=== PATIENT | female | born 1960 | race African-American/Black ===

== ENCOUNTER 2024-01-13 01:00 | Emergency (ER) | payer MEDICARE, MEDICAID ==
[~2024-01-13] VITALS: Ht 160 cm; Wt 63.0 kg
[2024-01-13 02:00] VITALS: O2SAT 99
[2024-01-13] MEDS: MIDAZOLAM HCL 2 MG/2 ML VIAL IV ONE (02:00)
[2024-01-13] MEDS: MORPHINE SULFATE 4 MG/ML INJ (FOR IV/IM USE) IV STA (02:16)
[2024-01-13] MEDS: ONDANSETRON HCL 4MG/2ML INJ IV STA (02:16)
[2024-01-13] MEDS: PANTOPRAZOLE SODIUM 40 MG/VIAL IV STA (02:16)
[2024-01-13 02:25] LABS: BASOPHILS % 0.5 % (0.0-2.0); EOSINOPHILS % 0.8 % (0.0-5.0); HEMATOCRIT. 43.6 % (36.0-48.0); HEMOGLOBIN. 14.6 g/dL (12.0-16.0); LYMPHOCYTES % 22.3 % (20.0-50.0); MEAN CORPUSCULAR HEMOGLOBIN 29.7 pg (28.0-32.0); MEAN CORPUSCULAR HGB CONC 33.5 g/dL (31.0-37.0); MEAN CORPUSCULAR VOLUME 88.8 fL (81.0-99.0); MEAN PLATELET VOLUME 8.8 fl (7.4-10.4); NEUTROPHILS % 68.4 % (40.0-76.0); PLATELET 263 x1000/uL (130-400); RED BLOOD CELL COUNT 4.91 mill/uL (4.2-5.4); RED CELL DISTRIBUTION WIDTH 14.4 % (11.6-14.6); WHITE BLOOD COUNT 5.1 x1000/uL (4.5-11.0)
[2024-01-13 02:37] LABS: CHLORIDE 107 mEq/L (98-107); POTASSIUM 4.7 mEq/L (3.5-5.1); SODIUM 136 mEq/L (136-145)
[2024-01-13 02:38] LABS: CALCIUM 10.3 mg/dL (8.7-10.4); CARBON DIOXIDE 19 mEq/L (21-32)
[2024-01-13] MEDS: SODIUM CHLORIDE 0.9% 1,000 ML IV ONE (02:38)
[2024-01-13 02:43] LABS: CREATININE 0.7 mg/dL (0.6-1.0); GLUCOSE 177 mg/dL (70-105); UREA NITROGEN BLOOD 11 mg/dL (9-23)
[2024-01-13 02:45] LABS: ALANINE AMINOTRANSFERASE 21 IU/L (10-49); ALBUMIN 5.1 g/dL (3.2-4.8); ASPARTATE AMINOTRANSFERASE 31 IU/L (<34); BILIRUBIN DIRECT 0.2 mg/dL (<=3.0); BILIRUBIN TOTAL 0.9 mg/dL (0.1-1.0); PROTEIN TOTAL 9.3 g/dL (6.0-8.3)
[2024-01-13 03:30] VITALS: BP 125/77; PULSE 95; RESP 23; TEMP 36.78072; O2SAT 99
== END 2024-01-13 06:15 | disposition left against medical advice (07) ==
LOC: ER 01:00 → EDBEDREQ 02:33 → EDBEDREQTM 05:21 → EDBEDREQSVC 05:21 → EDBEDREQ 05:21 → ER 06:15
DX: K50.90 Crohn's disease, unspecified, without complications (principal); R10.84 Generalized abdominal pain; R11.2 Nausea with vomiting, unspecified; J44.9 Chronic obstructive pulmonary disease, unspecified
CPT/HCPCS: 99284; 96374; 96375; 71045; 96361; 80076; 80048; 83605; 83690; 85025; 36415; J2405; J2470; J7030; J2270